=== PATIENT | male | born 1990 | race African-American/Black ===

== ENCOUNTER 2017-06-28 08:42 | Emergency (ER) | payer OTHER ==
[~2017-06-28] VITALS: Ht 185.4 cm; Wt 82.0 kg
[2017-06-28] MEDS ORDERED: ASPIRIN/ACETAMINOPHEN/CAFFEINE 250/250/65MG TABLET PO ONE (10:30)
[2017-06-28 12:15] VITALS: BP 112/67
== END 2017-06-28 13:20 | disposition home or self-care (01) ==
LOC: ER 09:24
DX: R51 Headache (principal); H57.11 Ocular pain, right eye; R11.0 Nausea
CPT/HCPCS: 70450; 99284